=== PATIENT | female | born 1965 | race Two or more races ===

== ENCOUNTER 2022-05-12 17:26 | Inpatient (IN) | payer OTHER ==
[~2022-05-12] VITALS: Ht 154.9 cm; Wt 51.5 kg
[2022-05-12] MEDS ORDERED: GABA-1181 PO (19:23)
[2022-05-12] MEDS ORDERED: CLON-592 PO (19:23)
[2022-05-12] MEDS ORDERED: OLAN7.5T22 PO (19:23)
[2022-05-12 21:32] LABS: BASOPHILS % (AUTO) 0.4 % (0.0-2.0); EOSINOPHILS % (AUTO) 0.4 % (1.0-6.0); HEMATOCRIT 39.5 % (36-46); HEMOGLOBIN 13.2 g/dL (12.0-16.0); LYMPHOCYTES # (AUTO) 2.2 K/uL (1.0-4.8); LYMPHOCYTES % (AUTO) 21.4 % (22.0-44.0); MEAN CORPUSCULAR HEMOGLOBIN 31.8 pg (26.0-34.0); MEAN CORPUSCULAR HGB CONC 33.5 G/dL (31.0-37.0); MEAN CORPUSCULAR VOLUME 95 fL (80-100); MONOCYTES # (AUTO) 0.8 K/uL (0.1-1.0); NEUTROPHILS # (AUTO) 7.2 K/uL (1.8-7.7); NEUTROPHILS % (AUTO) 69.8 % (40.0-70.0); PLATELET COUNT (AUTO) 277 K/uL (150-450); RED BLOOD CELL COUNT(AUTO) 4.16 MIL/uL (4.00-5.20); RED CELL DISTRIBUTION WIDTH 12.3 % (11.5-14.5)
[2022-05-12 21:41] LABS: ANION GAP 6 mmol/L (8-16); CALCIUM, TOTAL 9.8 mg/dL (8.8-10.5); CARBON DIOXIDE 30 mmol/L (22-29); CHLORIDE 106 mmol/L (98-107); CREATININE 0.61 mg/dL (0.60-1.30); GLOMERULAR FILTR. RATE CALC > 60 mL/min (>60); GLUCOSE,RANDOM 108 mg/dL (70-110); POTASSIUM 3.8 mmol/L (3.5-5.1); SODIUM SERUM 142 mmol/L (136-145); UREA NITROGEN, BLOOD 13 mg/dL (7-18)
[2022-05-12 21:46] LABS: ALANINE AMINOTRANSFERASE 36 U/L (12-78); ALBUMIN 3.8 g/dL (3.4-5.0); ALKALINE PHOSPHATASE 89 U/L (46-116); ASPARTATE AMINOTRANSFERASE 22 U/L (15-37); BILIRUBIN,TOTAL 0.5 mg/dL (0.1-1.0); TOTAL PROTEIN, SERUM 7.7 g/dL (6.4-8.2)
[2022-05-12] MEDS ORDERED: LORazepam 2 MG TABLET PO PRN ×2 (22:00→22:30)
[2022-05-12] MEDS ORDERED: ZOLPIDEM TARTRATE 10 MG TABLET PO PRN ×2 (22:00→22:30)
[2022-05-12] MEDS ORDERED: OLANZapine 5 MG RAPDIS TABLET PO PRN ×2 (22:00→22:30)
[2022-05-13 00:33] LABS: COVID AG,FIA SOURCE NASOPHARYNGEAL
[2022-05-13 02:53] VITALS: BP 120/82
[2022-05-13 09:02] VITALS: BP 109/71
[2022-05-13 16:00] VITALS: BP 99/66
[2022-05-13 16:27] VITALS: BP 99/66
[2022-05-13] MEDS ORDERED: TEMAZEPAM 15 MG CAPSULE PO PRN (21:45)
[2022-05-13] MEDS ORDERED: ChlorproMAZINE HCL 50 MG TABLET PO PRN (21:45)
[2022-05-13] MEDS: OLANZapine 7.5 MG TABLET PO SCH (22:15)
[2022-05-13] MEDS ORDERED: LORazepam 2 MG TABLET PO PRN (22:30)
[2022-05-14 02:30] VITALS: BP 141/65
[2022-05-14 08:00] VITALS: BP 149/96
[2022-05-14] MEDS: OLANZapine 5 MG TABLET PO SCH ×2 (09:00→10:06)
[2022-05-14] MEDS: GABAPENTIN 300 MG CAPSULE PO SCH ×5 (09:00→17:27)
[2022-05-14] MEDS ORDERED: LORazepam 2 MG TABLET PO PRN (10:30)
[2022-05-14 12:48] LABS: BILIRUBIN,URINE NEGATIVE (NEGATIVE); GLUCOSE, URINE (UA) NEGATIVE (NEGATIVE); KETONES,URINE NEGATIVE (NEGATIVE); NITRATE,URINE NEGATIVE (NEGATIVE); OCCULT BLOOD,URINE SMALL (NEGATIVE); PROTEIN,URINE NEGATIVE (NEGATIVE); SPECIFIC GRAVITIY, URINE 1.005 (1.003-1.030); UROBILINOGEN,URINE <=1.0 mg/dL (<=1.0)
[2022-05-14 12:54] LABS: APPEARANCE,URINE HAZY (CLEAR); LEUKOCYTE ESTERASE ,URINE SMALL (NEGATIVE)
[2022-05-14 12:55] LABS: BACTERIA,URINE Few /HPF (None Seen)
[2022-05-14 16:42] VITALS: BP 169/99
[2022-05-14] MEDS: NITROFURANTOIN MONOHYD/M-CRYST 100 MG CAPSULE [MACROBID] PO SCH (17:19)
[2022-05-14] MEDS: OLANZapine 7.5 MG TABLET PO SCH (20:28)
[2022-05-15 08:32] VITALS: BP 157/91
[2022-05-15] MEDS: OLANZapine 5 MG TABLET PO SCH (08:49)
[2022-05-15] MEDS: GABAPENTIN 300 MG CAPSULE PO SCH ×4 (08:49→21:10)
[2022-05-15] MEDS: NITROFURANTOIN MONOHYD/M-CRYST 100 MG CAPSULE [MACROBID] PO SCH ×2 (08:49→16:33)
[2022-05-15 16:30] VITALS: BP 136/90
[2022-05-15 19:00] VITALS: BP 152/86
[2022-05-15] MEDS: MELATONIN 5 MG TABLET PO SCH (21:10)
[2022-05-15] MEDS: OLANZapine 10 MG TABLET PO SCH (21:11)
[2022-05-16 08:11] VITALS: BP 142/84
[2022-05-16] MEDS: NITROFURANTOIN MONOHYD/M-CRYST 100 MG CAPSULE [MACROBID] PO SCH ×2 (09:26→17:27)
[2022-05-16] MEDS: GABAPENTIN 300 MG CAPSULE PO SCH ×2 (09:26→20:46)
[2022-05-16 12:01] VITALS: BP 138/77
[2022-05-16 16:28] VITALS: BP 132/95
[2022-05-16 20:43] VITALS: BP 160/99
[2022-05-16] MEDS: OLANZapine 10 MG TABLET PO SCH (20:46)
[2022-05-16] MEDS: MELATONIN 5 MG TABLET PO SCH (20:46)
[2022-05-17] MEDS: NITROFURANTOIN MONOHYD/M-CRYST 100 MG CAPSULE [MACROBID] PO SCH ×2 (09:00→19:01)
[2022-05-17] MEDS: GABAPENTIN 300 MG CAPSULE PO SCH ×2 (09:00→19:01)
[2022-05-17 16:33] VITALS: BP 127/77
[2022-05-17] MEDS ORDERED: ACETAMINOPHEN 325 MG TABLET PO PRN (16:45)
[2022-05-17] MEDS ORDERED: LORazepam 2 MG TABLET PO PRN (16:45)
[2022-05-17] MEDS ORDERED: ZOLPIDEM TARTRATE 10 MG TABLET PO PRN (16:45)
[2022-05-17] MEDS ORDERED: HydrOXYzine PAMOATE 50 MG CAPSULE PO PRN (16:45)
[2022-05-17] MEDS ORDERED: PROMETHAZINE HCL 25 MG TABLET PO PRN (16:45)
[2022-05-17] MEDS ORDERED: MAGNESIUM HYDROXIDE SUSPENSION 30 ML UDCUP PO PRN (16:45)
[2022-05-17] MEDS ORDERED: TUBERCULIN, PURIFIED PROTEIN DERIVATIVE 5 TU/0.1 ML SYRINGE ID ONE (16:45)
[2022-05-17] MEDS ORDERED: LURASIDONE HCL 20 MG TABLET PO PRN (16:45)
[2022-05-17] MEDS ORDERED: LOPERAMIDE HCL 2 MG CAPSULE PO PRN (16:45)
[2022-05-17] MEDS ORDERED: GuaiFENesin/D-METHORPHAN [SUGAR-FREE] 200-20MG/10 ML SYRUP UDCUP PO PRN (16:45)
[2022-05-17] MEDS ORDERED: MAG HYDROX/AL HYDROX/SIMETH ES 30 ML SUSPENSION UDCUP PO PRN (16:45)
[2022-05-17] MEDS: THIAMINE 100 MG TABLET PO SCH (19:01)
[2022-05-17] MEDS: MIRTAZAPINE 15 MG TABLET PO SCH (21:03)
[2022-05-17] MEDS: MELATONIN 5 MG TABLET PO SCH (21:03)
[2022-05-18] MEDS: LURASIDONE HCL 40 MG TABLET PO SCH (06:57)
[2022-05-18 07:12] LABS: HEMOGLOBIN A1C 5.8 % (3.8-5.6)
[2022-05-18 07:16] LABS: CHOL/HDL RATIO 2.5 (3.9-5.7); FREE T4 (FREE THYROXINE) 0.96 ng/dL (0.76-1.46); THYROID STIMULATING HORMONE 2.31 uIU/mL (0.36-3.74)
[2022-05-18 08:00] VITALS: BP 122/79
[2022-05-18] MEDS: NITROFURANTOIN MONOHYD/M-CRYST 100 MG CAPSULE [MACROBID] PO SCH ×2 (08:38→18:35)
[2022-05-18] MEDS: GABAPENTIN 300 MG CAPSULE PO SCH ×2 (08:38→14:29)
[2022-05-18] MEDS: FOLIC ACID 1 MG TABLET PO SCH (08:44)
[2022-05-18] MEDS: OMEGA-3/DHA/EPA/FISH OIL 1,000 MG CAPSULE PO SCH (08:44)
[2022-05-18] MEDS: MULTIVITAMINS WITH MINERALS, THERAPEUTIC TABLET PO SCH (08:45)
[2022-05-18] MEDS: THIAMINE 100 MG TABLET PO SCH ×2 (08:45→18:35)
[2022-05-18] MEDS ORDERED: DULoxetine HCL 20 MG CAPSULE PO SCH (09:00)
[2022-05-18 16:05] VITALS: BP 104/67
[2022-05-18] MEDS: GABAPENTIN 100 MG CAPSULE PO SCH (18:36)
[2022-05-18] MEDS: MELATONIN 5 MG TABLET PO SCH (21:10)
[2022-05-18] MEDS: MIRTAZAPINE 15 MG TABLET PO SCH (21:10)
[2022-05-19] MEDS: LURASIDONE HCL 40 MG TABLET PO SCH (06:43)
[2022-05-19 07:15] LABS: COVID AG,FIA SOURCE NASAL SWAB
[2022-05-19 08:31] VITALS: BP 131/81
[2022-05-19] MEDS: OMEGA-3/DHA/EPA/FISH OIL 1,000 MG CAPSULE PO SCH (08:40)
[2022-05-19] MEDS: GABAPENTIN 100 MG CAPSULE PO SCH ×3 (08:40→16:10)
[2022-05-19] MEDS: MULTIVITAMINS WITH MINERALS, THERAPEUTIC TABLET PO SCH (08:40)
[2022-05-19] MEDS: THIAMINE 100 MG TABLET PO SCH ×2 (08:40→16:10)
[2022-05-19] MEDS: FOLIC ACID 1 MG TABLET PO SCH (08:40)
[2022-05-19] MEDS: NITROFURANTOIN MONOHYD/M-CRYST 100 MG CAPSULE [MACROBID] PO SCH (08:40)
[2022-05-19 08:53] VITALS: BP 130/76
[2022-05-19] MEDS ORDERED: DULoxetine HCL 30 MG CAPSULE PO SCH (09:00)
[2022-05-19 16:00] VITALS: BP 142/78
[2022-05-19 16:15] VITALS: BP 142/78
[2022-05-19] MEDS ORDERED: OMEG-135 PO (17:10)
[2022-05-19] MEDS ORDERED: DULO-114 PO (17:10)
[2022-05-19] MEDS ORDERED: MELA5TAB40 PO (17:10)
[2022-05-19] MEDS ORDERED: GABA-1216 PO (17:10)
[2022-05-19] MEDS ORDERED: LURA40TA2 PO (17:10)
[2022-05-19] MEDS ORDERED: MIRT-89 PO (17:10)
== END 2022-05-19 19:00 | disposition home or self-care (01) | DRG 885 ==
LOC: EMS 17:29 → 3EI 05-13 01:04
PROVIDERS: ADMIT Psychiatry & Neurology Psychiatry; ATTEND Psychiatry & Neurology Psychiatry
DX: F33.9 Major depressive disorder, recurrent, unspecified (principal); R45.851 Suicidal ideations; F25.0 Schizoaffective disorder, bipolar type; F41.9 Anxiety disorder, unspecified; I10 Essential (primary) hypertension; Z20.822 Contact with and (suspected) exposure to COVID-19; Z55.9 Problems related to education and literacy, unspecified; Z59.9 Problem related to housing and economic circumstances, unspecified; Z63.9 Problem related to primary support group, unspecified; Z65.3 Problems related to other legal circumstances; Z79.899 Other long term (current) drug therapy; Z91.14 Patient's other noncompliance with medication regimen; Z91.19 Patient's noncompliance with other medical treatment and regimen; Z91.52 Personal history of nonsuicidal self-harm; Z63.8 Other specified problems related to primary support group; Z63.0 Problems in relationship with spouse or partner; Z56.0 Unemployment, unspecified
CPT/HCPCS: 80053; 80061; 81001; 83036; 84439; 84443; 85025; 86592; 99285; G0480; Q9967

== ENCOUNTER 2022-05-26 11:33 | Inpatient (IN) | payer OTHER ==
[~2022-05-26] VITALS: Ht 154.9 cm; Wt 54.9 kg
[~2022-05-26 11:33] MED LIST: DULO-114 PO; GABA-1216 PO; LURA40TA2 PO; MELA5TAB40 PO; MIRT-89 PO; OMEG-135 PO
[2022-05-26 12:13] LABS: BASOPHILS % (AUTO) 0.8 % (0.0-2.0); EOSINOPHILS % (AUTO) 0.5 % (1.0-6.0); HEMOGLOBIN 12.9 g/dL (12.0-16.0); LYMPHOCYTES # (AUTO) 1.5 K/uL (1.0-4.8); MEAN CORPUSCULAR HEMOGLOBIN 31.6 pg (26.0-34.0); MEAN CORPUSCULAR HGB CONC 33.2 G/dL (31.0-37.0); MEAN CORPUSCULAR VOLUME 95 fL (80-100); MONOCYTES # (AUTO) 0.6 K/uL (0.1-1.0); MONOCYTES % (AUTO) 6.3 % (2.0-9.0); NEUTROPHILS # (AUTO) 6.8 K/uL (1.8-7.7); NEUTROPHILS % (AUTO) 75.4 % (40.0-70.0); PLATELET COUNT (AUTO) 282 K/uL (150-450); RED CELL DISTRIBUTION WIDTH 12.6 % (11.5-14.5)
[2022-05-26 12:23] LABS: ANION GAP 6 mmol/L (8-16); CALCIUM, TOTAL 9.1 mg/dL (8.8-10.5); CARBON DIOXIDE 28 mmol/L (22-29); CHLORIDE 105 mmol/L (98-107); CREATININE 0.71 mg/dL (0.60-1.30); GLUCOSE,RANDOM 118 mg/dL (70-110); SODIUM SERUM 139 mmol/L (136-145); UREA NITROGEN, BLOOD 17 mg/dL (7-18)
[2022-05-26 12:25] LABS: GLOMERULAR FILTR. RATE CALC > 60 mL/min (>60)
[2022-05-26 12:29] LABS: ALANINE AMINOTRANSFERASE 35 U/L (12-78); ALBUMIN 3.6 g/dL (3.4-5.0); ALKALINE PHOSPHATASE 85 U/L (46-116); ASPARTATE AMINOTRANSFERASE 22 U/L (15-37); BILIRUBIN,TOTAL 0.5 mg/dL (0.1-1.0); TOTAL PROTEIN, SERUM 7.4 g/dL (6.4-8.2)
[2022-05-26] MEDS ORDERED: LORazepam 2 MG TABLET PO ONE (14:15)
[2022-05-26] MEDS ORDERED: OLANZapine 5 MG TABLET PO ONE (14:30)
[2022-05-26 14:53] LABS: COVID AG,FIA SOURCE NASOPHARYNGEAL
[2022-05-26] MEDS ORDERED: LOPERAMIDE HCL 2 MG CAPSULE PO PRN (15:45)
[2022-05-26] MEDS ORDERED: PROMETHAZINE HCL 25 MG TABLET PO PRN (15:45)
[2022-05-26] MEDS ORDERED: ZOLPIDEM TARTRATE 10 MG TABLET PO PRN (15:45)
[2022-05-26] MEDS ORDERED: MAG HYDROX/AL HYDROX/SIMETH ES 30 ML SUSPENSION UDCUP PO PRN (15:45)
[2022-05-26] MEDS ORDERED: HydrOXYzine PAMOATE 50 MG CAPSULE PO PRN (15:45)
[2022-05-26] MEDS ORDERED: MAGNESIUM HYDROXIDE SUSPENSION 30 ML UDCUP PO PRN (15:45)
[2022-05-26] MEDS ORDERED: LORazepam 2 MG TABLET PO PRN ×2 (15:45)
[2022-05-26] MEDS ORDERED: OLANZapine 5 MG RAPDIS TABLET PO PRN (15:45)
[2022-05-26] MEDS ORDERED: GuaiFENesin/D-METHORPHAN [SUGAR-FREE] 200-20MG/10 ML SYRUP UDCUP PO PRN (15:45)
[2022-05-26] MEDS: GABAPENTIN 100 MG CAPSULE PO SCH ×2 (16:38→20:32)
[2022-05-26] MEDS: THIAMINE 100 MG TABLET PO SCH (17:28)
[2022-05-26] MEDS: MIRTAZAPINE 15 MG TABLET PO SCH (20:32)
[2022-05-26] MEDS ORDERED: OLANZapine 10 MG RAPDIS TABLET PO SCH (21:00)
[2022-05-26 21:03] VITALS: BP 102/69
[2022-05-26] MEDS ORDERED: CloNIDine HCL 0.1 MG TABLET PO PRN (23:45)
[2022-05-27] MEDS: THIAMINE 100 MG TABLET PO SCH ×2 (08:16→17:16)
[2022-05-27] MEDS: GABAPENTIN 100 MG CAPSULE PO SCH ×2 (08:16→12:10)
[2022-05-27] MEDS: DULoxetine HCL 20 MG CAPSULE PO SCH (08:16)
[2022-05-27] MEDS: MULTIVITAMINS WITH MINERALS, THERAPEUTIC TABLET PO SCH (08:16)
[2022-05-27] MEDS: FOLIC ACID 1 MG TABLET PO SCH (08:16)
[2022-05-27 08:45] VITALS: BP 118/70
[2022-05-27] MEDS ORDERED: PREGABALIN 50 MG CAPSULE PO PRN (15:45)
[2022-05-27] MEDS: OLANZapine 5 MG RAPDIS TABLET PO PRN (17:32)
[2022-05-27 20:10] VITALS: BP 137/93
[2022-05-27] MEDS: ZOLPIDEM TARTRATE 10 MG TABLET PO PRN (21:16)
[2022-05-27] MEDS: MIRTAZAPINE 15 MG TABLET PO SCH (21:16)
[2022-05-28 06:57] LABS: BASOPHILS % (AUTO) 0.9 % (0.0-2.0); EOSINOPHILS % (AUTO) 3.5 % (1.0-6.0); LYMPHOCYTES # (AUTO) 2.5 K/uL (1.0-4.8); LYMPHOCYTES % (AUTO) 33.3 % (22.0-44.0); MEAN CORPUSCULAR HGB CONC 33.5 G/dL (31.0-37.0); MEAN CORPUSCULAR VOLUME 96 fL (80-100); MONOCYTES # (AUTO) 0.6 K/uL (0.1-1.0); MONOCYTES % (AUTO) 8.4 % (2.0-9.0); NEUTROPHILS # (AUTO) 4.1 K/uL (1.8-7.7); NEUTROPHILS % (AUTO) 53.9 % (40.0-70.0); PLATELET COUNT (AUTO) 271 K/uL (150-450); RED BLOOD CELL COUNT(AUTO) 4.07 MIL/uL (4.00-5.20); RED CELL DISTRIBUTION WIDTH 12.2 % (11.5-14.5)
[2022-05-28] MEDS: DULoxetine HCL 20 MG CAPSULE PO SCH (08:14)
[2022-05-28] MEDS: THIAMINE 100 MG TABLET PO SCH ×2 (08:14→16:25)
[2022-05-28] MEDS: MULTIVITAMINS WITH MINERALS, THERAPEUTIC TABLET PO SCH (08:14)
[2022-05-28] MEDS: FOLIC ACID 1 MG TABLET PO SCH (08:14)
[2022-05-28 08:30] VITALS: BP 121/75
[2022-05-28] MEDS: OLANZapine 5 MG RAPDIS TABLET PO PRN (10:20)
[2022-05-28] MEDS ORDERED: CloZAPine 25 MG TABLET PO SCH (11:00)
[2022-05-28] MEDS ORDERED: PROPRANOLOL HCL 10 MG TABLET PO ONE (14:30)
[2022-05-28] MEDS ORDERED: LORazepam 2 MG TABLET PO ONE (14:30)
[2022-05-28] MEDS ORDERED: LORazepam 2 MG TABLET PO PRN (14:30)
[2022-05-28 16:07] VITALS: BP 118/78
[2022-05-28] MEDS: PROPRANOLOL HCL 10 MG TABLET PO SCH ×2 (16:25→21:40)
[2022-05-28] MEDS: LORazepam 1 MG TABLET PO SCH ×2 (16:25→21:39)
[2022-05-28 20:00] VITALS: BP 119/75
[2022-05-28] MEDS: MIRTAZAPINE 15 MG TABLET PO SCH (21:39)
[2022-05-29 08:06] VITALS: BP 117/75
[2022-05-29] MEDS ORDERED: CloZAPine 25 MG TABLET PO SCH ×2 (09:00→21:00)
[2022-05-29 09:23] LABS: APPEARANCE,URINE CLEAR (CLEAR); BILIRUBIN,URINE NEGATIVE (NEGATIVE); GLUCOSE, URINE (UA) NEGATIVE (NEGATIVE); KETONES,URINE NEGATIVE (NEGATIVE); LEUKOCYTE ESTERASE ,URINE NEGATIVE (NEGATIVE); NITRATE,URINE NEGATIVE (NEGATIVE); OCCULT BLOOD,URINE NEGATIVE (NEGATIVE); PH,URINE 6.5 (5.0-8.0); PROTEIN,URINE NEGATIVE (NEGATIVE); SPECIFIC GRAVITIY, URINE 1.015 (1.003-1.030); UROBILINOGEN,URINE <=1.0 mg/dL (<=1.0)
[2022-05-29 09:30] LABS: AMPHET/METH SCREEN,URINE NEGATIVE (NEGATIVE); BARBITURATE SCREEN, URINE NEGATIVE (NEGATIVE); BENZODIAZEPINES SCREEN,URINE NEGATIVE (NEGATIVE); CANNABINOID SCREEN,URINE NEGATIVE (NEGATIVE); COCAINE SCREEN,URINE NEGATIVE (NEGATIVE); METHADONE SCREEN, URINE NEGATIVE (NEGATIVE); OPIATE SCREEN,URINE NEGATIVE (NEGATIVE)
[2022-05-29 09:34] LABS: PHENCYCLIDINE SCREEN,URINE NEGATIVE (NEGATIVE)
[2022-05-29] MEDS: THIAMINE 100 MG TABLET PO SCH ×2 (09:50→16:33)
[2022-05-29] MEDS: LORazepam 1 MG TABLET PO SCH ×4 (09:50→20:59)
[2022-05-29] MEDS: PROPRANOLOL HCL 10 MG TABLET PO SCH ×4 (09:50→20:59)
[2022-05-29] MEDS: FOLIC ACID 1 MG TABLET PO SCH (09:50)
[2022-05-29] MEDS: MULTIVITAMINS WITH MINERALS, THERAPEUTIC TABLET PO SCH (09:50)
[2022-05-29 20:00] VITALS: BP 105/69
[2022-05-29] MEDS: MIRTAZAPINE 15 MG TABLET PO SCH (20:59)
[2022-05-30] MEDS: MULTIVITAMINS WITH MINERALS, THERAPEUTIC TABLET PO SCH (08:53)
[2022-05-30] MEDS: THIAMINE 100 MG TABLET PO SCH ×2 (08:53→18:44)
[2022-05-30] MEDS: FOLIC ACID 1 MG TABLET PO SCH (08:53)
[2022-05-30] MEDS: LORazepam 1 MG TABLET PO SCH ×4 (08:53→20:36)
[2022-05-30] MEDS: PROPRANOLOL HCL 10 MG TABLET PO SCH ×4 (08:53→20:37)
[2022-05-30] MEDS ORDERED: CloZAPine 25 MG TABLET PO SCH ×2 (09:00→21:00)
[2022-05-30 09:09] VITALS: BP 119/72
[2022-05-30 15:02] VITALS: BP 112/70
[2022-05-30 18:45] VITALS: BP 127/87
[2022-05-30] MEDS: MIRTAZAPINE 15 MG TABLET PO SCH (20:36)
[2022-05-30 20:44] VITALS: BP 113/60
[2022-05-30] MEDS: ZOLPIDEM TARTRATE 10 MG TABLET PO PRN (21:56)
[2022-05-31] MEDS: LORazepam 1 MG TABLET PO SCH ×3 (08:22→16:43)
[2022-05-31] MEDS: PROPRANOLOL HCL 10 MG TABLET PO SCH ×4 (08:22→20:29)
[2022-05-31] MEDS: MULTIVITAMINS WITH MINERALS, THERAPEUTIC TABLET PO SCH (08:22)
[2022-05-31] MEDS: FOLIC ACID 1 MG TABLET PO SCH (08:22)
[2022-05-31] MEDS: THIAMINE 100 MG TABLET PO SCH ×2 (08:22→16:44)
[2022-05-31 08:33] VITALS: BP 110/75
[2022-05-31] MEDS ORDERED: CloZAPine 25 MG TABLET PO SCH (09:00)
[2022-05-31 16:30] VITALS: BP 117/72
[2022-05-31 20:16] VITALS: BP 122/76
[2022-05-31] MEDS: MIRTAZAPINE 30 MG TABLET PO SCH (20:29)
[2022-05-31] MEDS: ZOLPIDEM TARTRATE 10 MG TABLET PO PRN (20:57)
[2022-06-01] MEDS: PROPRANOLOL HCL 10 MG TABLET PO SCH ×4 (08:12→20:27)
[2022-06-01] MEDS: FOLIC ACID 1 MG TABLET PO SCH (08:12)
[2022-06-01] MEDS: MULTIVITAMINS WITH MINERALS, THERAPEUTIC TABLET PO SCH (08:12)
[2022-06-01] MEDS: LORazepam 0.5 MG TABLET PO SCH ×3 (08:12→16:31)
[2022-06-01] MEDS: THIAMINE 100 MG TABLET PO SCH ×2 (08:12→16:31)
[2022-06-01 08:21] VITALS: BP 114/74
[2022-06-01 12:25] VITALS: BP 126/75
[2022-06-01] MEDS ORDERED: MIRT30 PO (14:29)
[2022-06-01] MEDS ORDERED: PROP10TA72 PO (14:29)
[2022-06-01 16:21] LABS: GLUCOMETER DEV NAME(LOC) POC.BV
[2022-06-01 16:31] VITALS: BP 140/88
[2022-06-01 20:17] VITALS: BP 123/74
[2022-06-01] MEDS: MIRTAZAPINE 30 MG TABLET PO SCH (20:27)
[2022-06-01] MEDS: ZOLPIDEM TARTRATE 10 MG TABLET PO PRN (20:59)
[2022-06-02 07:15] LABS: BASOPHILS % (AUTO) 0.7 % (0.0-2.0); EOSINOPHILS % (AUTO) 2.6 % (1.0-6.0); HEMATOCRIT 37.4 % (36-46); HEMOGLOBIN 12.3 g/dL (12.0-16.0); LYMPHOCYTES # (AUTO) 2.7 K/uL (1.0-4.8); LYMPHOCYTES % (AUTO) 27.6 % (22.0-44.0); MEAN CORPUSCULAR HEMOGLOBIN 31.7 pg (26.0-34.0); MEAN CORPUSCULAR HGB CONC 32.9 G/dL (31.0-37.0); MEAN CORPUSCULAR VOLUME 96 fL (80-100); MONOCYTES # (AUTO) 0.8 K/uL (0.1-1.0); MONOCYTES % (AUTO) 8.6 % (2.0-9.0); NEUTROPHILS % (AUTO) 60.5 % (40.0-70.0); PLATELET COUNT (AUTO) 278 K/uL (150-450); RED BLOOD CELL COUNT(AUTO) 3.88 MIL/uL (4.00-5.20); RED CELL DISTRIBUTION WIDTH 12.4 % (11.5-14.5)
[2022-06-02] MEDS: PROPRANOLOL HCL 10 MG TABLET PO SCH ×4 (08:13→20:31)
[2022-06-02] MEDS: FOLIC ACID 1 MG TABLET PO SCH (08:13)
[2022-06-02] MEDS: THIAMINE 100 MG TABLET PO SCH ×2 (08:13→16:32)
[2022-06-02] MEDS: MULTIVITAMINS WITH MINERALS, THERAPEUTIC TABLET PO SCH (08:13)
[2022-06-02 08:25] VITALS: BP 153/91
[2022-06-02] MEDS ORDERED: CloZAPine 25 MG TABLET PO SCH ×2 (09:00)
[2022-06-02 16:31] VITALS: BP 112/62
[2022-06-02 20:17] VITALS: BP 120/75
[2022-06-02] MEDS: MIRTAZAPINE 30 MG TABLET PO SCH (20:31)
[2022-06-02] MEDS: ZOLPIDEM TARTRATE 10 MG TABLET PO PRN (20:59)
[2022-06-02] MEDS ORDERED: CloZAPine 100 MG TABLET PO SCH (21:00)
[2022-06-03] MEDS: FOLIC ACID 1 MG TABLET PO SCH (08:01)
[2022-06-03] MEDS: THIAMINE 100 MG TABLET PO SCH ×3 (08:01→16:00)
[2022-06-03] MEDS: MULTIVITAMINS WITH MINERALS, THERAPEUTIC TABLET PO SCH (08:01)
[2022-06-03] MEDS: PROPRANOLOL HCL 10 MG TABLET PO SCH ×5 (08:01→21:15)
[2022-06-03 08:37] VITALS: BP 124/70
[2022-06-03] MEDS ORDERED: CloZAPine 25 MG TABLET PO SCH ×3 (09:00→21:00)
[2022-06-03] MEDS ORDERED: GABAPENTIN 300 MG CAPSULE PO PRN (14:45)
[2022-06-03] MEDS: GABAPENTIN 300 MG CAPSULE PO SCH ×2 (15:58→16:00)
[2022-06-03] MEDS ORDERED: CloZAPine 100 MG TABLET PO SCH (21:00)
[2022-06-03 21:13] VITALS: BP 107/74
[2022-06-03] MEDS: MIRTAZAPINE 30 MG TABLET PO SCH (21:15)
[2022-06-04 08:07] VITALS: BP 120/63
[2022-06-04] MEDS ORDERED: CloZAPine 25 MG TABLET PO SCH ×3 (09:00→21:00)
[2022-06-04] MEDS: MULTIVITAMINS WITH MINERALS, THERAPEUTIC TABLET PO SCH (10:15)
[2022-06-04] MEDS ORDERED: PREGABALIN 50 MG CAPSULE PO PRN (10:15)
[2022-06-04] MEDS: PROPRANOLOL HCL 10 MG TABLET PO SCH ×4 (10:15→21:22)
[2022-06-04] MEDS: THIAMINE 100 MG TABLET PO SCH ×2 (10:16→17:06)
[2022-06-04] MEDS: FOLIC ACID 1 MG TABLET PO SCH (10:16)
[2022-06-04 12:28] VITALS: BP 122/66
[2022-06-04] MEDS: PREGABALIN 50 MG CAPSULE PO SCH ×2 (12:30→17:06)
[2022-06-04 20:00] VITALS: BP 100/70
[2022-06-04] MEDS ORDERED: CloZAPine 100 MG TABLET PO SCH (21:00)
[2022-06-04] MEDS: MIRTAZAPINE 30 MG TABLET PO SCH (21:23)
[2022-06-05 08:22] VITALS: BP 139/65
[2022-06-05] MEDS: PROPRANOLOL HCL 10 MG TABLET PO SCH ×4 (08:29→20:28)
[2022-06-05] MEDS: PREGABALIN 50 MG CAPSULE PO SCH ×3 (08:29→16:30)
[2022-06-05] MEDS: CloZAPine 25 MG TABLET PO SCH ×2 (08:29→20:28)
[2022-06-05] MEDS: FOLIC ACID 1 MG TABLET PO SCH (08:29)
[2022-06-05] MEDS: MULTIVITAMINS WITH MINERALS, THERAPEUTIC TABLET PO SCH (08:29)
[2022-06-05] MEDS ORDERED: CloZAPine 100 MG TABLET PO SCH (09:00)
[2022-06-05 12:41] VITALS: BP 115/62
[2022-06-05 16:38] VITALS: BP 111/77
[2022-06-05 20:12] VITALS: BP 118/73
[2022-06-05] MEDS: MIRTAZAPINE 30 MG TABLET PO SCH (20:28)
[2022-06-05] MEDS: ZOLPIDEM TARTRATE 10 MG TABLET PO PRN (21:15)
[2022-06-06 08:05] VITALS: BP 100/65
[2022-06-06] MEDS: PROPRANOLOL HCL 10 MG TABLET PO SCH ×4 (08:24→20:31)
[2022-06-06] MEDS: MULTIVITAMINS WITH MINERALS, THERAPEUTIC TABLET PO SCH (08:24)
[2022-06-06] MEDS: PREGABALIN 50 MG CAPSULE PO SCH ×3 (08:24→16:49)
[2022-06-06] MEDS: CloZAPine 25 MG TABLET PO SCH ×2 (08:25→20:30)
[2022-06-06 12:14] VITALS: BP 111/68
[2022-06-06] MEDS: ACETAMINOPHEN 325 MG TABLET PO PRN (12:27)
[2022-06-06 20:05] VITALS: BP 122/71
[2022-06-06] MEDS: ZOLPIDEM TARTRATE 10 MG TABLET PO PRN (20:29)
[2022-06-06] MEDS: MIRTAZAPINE 30 MG TABLET PO SCH (20:31)
[2022-06-07] MEDS: MULTIVITAMINS WITH MINERALS, THERAPEUTIC TABLET PO SCH (08:08)
[2022-06-07] MEDS: PREGABALIN 50 MG CAPSULE PO SCH ×2 (08:08→12:30)
[2022-06-07] MEDS: PROPRANOLOL HCL 10 MG TABLET PO SCH ×4 (08:09→20:30)
[2022-06-07 08:35] VITALS: BP 89/48
[2022-06-07] MEDS ORDERED: CloZAPine 25 MG TABLET PO SCH ×2 (09:00)
[2022-06-07 16:14] VITALS: BP 105/65
[2022-06-07] MEDS: ACETAMINOPHEN 325 MG TABLET PO PRN (16:14)
[2022-06-07] MEDS: PREGABALIN 75 MG CAPSULE PO SCH (17:15)
[2022-06-07 20:17] VITALS: BP 126/89
[2022-06-07] MEDS: MIRTAZAPINE 30 MG TABLET PO SCH (20:30)
[2022-06-07] MEDS: ZOLPIDEM TARTRATE 10 MG TABLET PO PRN (20:55)
[2022-06-07] MEDS ORDERED: CloZAPine 100 MG TABLET PO SCH ×2 (21:00)
[2022-06-07 21:15] VITALS: BP 78/42
[2022-06-07 23:15] VITALS: BP 78/42
[2022-06-07 23:30] VITALS: BP 118/60
[2022-06-08] VITALS (9 sets, daily range): BP systolic 110–218; BP diastolic 65–90
[2022-06-08] MEDS: MULTIVITAMINS WITH MINERALS, THERAPEUTIC TABLET PO SCH (08:00)
[2022-06-08] MEDS: PREGABALIN 75 MG CAPSULE PO SCH ×3 (08:01→17:46)
[2022-06-08] MEDS: ACETAMINOPHEN 325 MG TABLET PO PRN ×3 (08:04→20:43)
[2022-06-08 08:41] LABS: GLUCOMETER DEV NAME(LOC) POC.BV
[2022-06-08] MEDS ORDERED: CloZAPine 25 MG TABLET PO SCH ×2 (09:00)
[2022-06-08] MEDS: MIRTAZAPINE 30 MG TABLET PO SCH (20:50)
[2022-06-08] MEDS ORDERED: CloZAPine 100 MG TABLET PO SCH ×2 (21:00)
[2022-06-09 07:13] LABS: BASOPHILS % (AUTO) 0.6 % (0.0-2.0); EOSINOPHILS % (AUTO) 0.8 % (1.0-6.0); HEMATOCRIT 38.9 % (36-46); LYMPHOCYTES # (AUTO) 1.9 K/uL (1.0-4.8); LYMPHOCYTES % (AUTO) 23.1 % (22.0-44.0); MEAN CORPUSCULAR HGB CONC 33.5 G/dL (31.0-37.0); MEAN CORPUSCULAR VOLUME 96 fL (80-100); MONOCYTES # (AUTO) 0.5 K/uL (0.1-1.0); MONOCYTES % (AUTO) 5.8 % (2.0-9.0); NEUTROPHILS # (AUTO) 5.8 K/uL (1.8-7.7); NEUTROPHILS % (AUTO) 69.7 % (40.0-70.0); PLATELET COUNT (AUTO) 275 K/uL (150-450); RED BLOOD CELL COUNT(AUTO) 4.07 MIL/uL (4.00-5.20); RED CELL DISTRIBUTION WIDTH 12.8 % (11.5-14.5)
[2022-06-09 08:05] VITALS: BP 121/59
[2022-06-09] MEDS: MULTIVITAMINS WITH MINERALS, THERAPEUTIC TABLET PO SCH (08:12)
[2022-06-09] MEDS: PREGABALIN 75 MG CAPSULE PO SCH ×2 (08:12→12:45)
[2022-06-09] MEDS ORDERED: CloZAPine 25 MG TABLET PO SCH (09:00)
[2022-06-09] MEDS ORDERED: CloZAPine 100 MG TABLET PO SCH ×3 (09:00→21:00)
[2022-06-09 11:47] VITALS: BP 135/64
[2022-06-09] MEDS ORDERED: ZOLPIDEM TARTRATE 5 MG TABLET PO PRN (15:00)
[2022-06-09] MEDS: PREGABALIN 50 MG CAPSULE PO SCH (16:05)
[2022-06-09 20:33] VITALS: BP 130/78
[2022-06-09] MEDS ORDERED: MIRTAZAPINE 30 MG TABLET PO SCH (21:00)
[2022-06-10] MEDS: MULTIVITAMINS WITH MINERALS, THERAPEUTIC TABLET PO SCH (09:24)
[2022-06-10] MEDS: PREGABALIN 50 MG CAPSULE PO SCH ×3 (09:24→17:26)
[2022-06-10] MEDS: CloZAPine 100 MG TABLET PO SCH ×2 (09:25→20:31)
[2022-06-10 10:08] VITALS: BP 113/76
[2022-06-10 20:01] VITALS: BP 120/71
[2022-06-10] MEDS: MIRTAZAPINE 15 MG TABLET PO SCH (20:31)
[2022-06-11 09:19] VITALS: BP 106/67
[2022-06-11] MEDS: CloZAPine 100 MG TABLET PO SCH ×2 (09:50→21:31)
[2022-06-11] MEDS: MULTIVITAMINS WITH MINERALS, THERAPEUTIC TABLET PO SCH (09:50)
[2022-06-11] MEDS: PREGABALIN 50 MG CAPSULE PO SCH ×2 (09:51→13:27)
[2022-06-11] MEDS ORDERED: MELA5TAB40 PO (14:40)
[2022-06-11] MEDS ORDERED: PREG50 PO (14:40)
[2022-06-11] MEDS ORDERED: MIRT-89 PO (14:40)
[2022-06-11] MEDS ORDERED: CLOZ100T11 PO (14:40)
[2022-06-11] MEDS: PREGABALIN 25 MG CAPSULE PO SCH (17:45)
[2022-06-11 20:00] VITALS: BP 112/62
[2022-06-11] MEDS: MIRTAZAPINE 15 MG TABLET PO SCH (20:08)
[2022-06-11] MEDS: ACETAMINOPHEN 325 MG TABLET PO PRN (23:30)
[2022-06-12] MEDS: PREGABALIN 25 MG CAPSULE PO SCH ×3 (08:32→16:35)
[2022-06-12] MEDS: MULTIVITAMINS WITH MINERALS, THERAPEUTIC TABLET PO SCH (08:32)
[2022-06-12 09:00] VITALS: BP 136/83
[2022-06-12] MEDS ORDERED: CloZAPine 25 MG TABLET PO SCH ×2 (09:00)
[2022-06-12] MEDS: ACETAMINOPHEN 325 MG TABLET PO PRN (19:20)
[2022-06-12 20:00] VITALS: BP 104/72
[2022-06-12] MEDS: MIRTAZAPINE 15 MG TABLET PO SCH (20:13)
[2022-06-12] MEDS ORDERED: CloZAPine 100 MG TABLET PO SCH (21:00)
[2022-06-13] MEDS ORDERED: CloZAPine 25 MG TABLET PO SCH (09:00)
[2022-06-13 09:15] VITALS: BP 109/79
[2022-06-13] MEDS: PREGABALIN 25 MG CAPSULE PO SCH ×3 (09:18→17:24)
[2022-06-13] MEDS: MULTIVITAMINS WITH MINERALS, THERAPEUTIC TABLET PO SCH (09:18)
[2022-06-13] MEDS: MIRTAZAPINE 15 MG TABLET PO SCH (20:24)
[2022-06-13] MEDS ORDERED: CloZAPine 100 MG TABLET PO SCH (21:00)
[2022-06-13 21:20] VITALS: BP 126/75
[2022-06-14 08:26] VITALS: BP 113/71
[2022-06-14] MEDS ORDERED: CloZAPine 100 MG TABLET PO SCH ×2 (09:00→21:00)
[2022-06-14] MEDS: MULTIVITAMINS WITH MINERALS, THERAPEUTIC TABLET PO SCH (09:29)
[2022-06-14] MEDS: PREGABALIN 25 MG CAPSULE PO SCH (09:30)
== END 2022-06-14 12:00 | disposition home or self-care (01) | DRG 885 ==
LOC: EMS 11:36 → B2X 16:53
PROVIDERS: ADMIT Psychiatry & Neurology Psychiatry; ATTEND Psychiatry & Neurology Psychiatry
DX: F33.3 Major depressive disorder, recurrent, severe with psychotic symptoms (principal); I10 Essential (primary) hypertension; I95.1 Orthostatic hypotension; R73.9 Hyperglycemia, unspecified; Z20.822 Contact with and (suspected) exposure to COVID-19; Z55.9 Problems related to education and literacy, unspecified; Z59.9 Problem related to housing and economic circumstances, unspecified; Z63.9 Problem related to primary support group, unspecified; Z65.3 Problems related to other legal circumstances; Z79.899 Other long term (current) drug therapy
CPT/HCPCS: 80053; 80159; 80307; 81003; 85025; 87081; 99291; G0480

== ENCOUNTER 2022-06-08 01:41 | Emergency (ER) | payer OTHER ==
[~2022-06-08] VITALS: Ht 160 cm; Wt 58.0 kg
[~2022-06-08 01:41] MED LIST changes: +MIRT30 PO; +PROP10TA72 PO
[2022-06-08] MEDS ORDERED: ACETAMINOPHEN 500 MG TABLET PO ONE (02:30)
[2022-06-08] MEDS ORDERED: LIDOCAINE 5% TRANSDERMAL PATCH TD ONE (02:30)
[2022-06-08 02:46] LABS: BASOPHILS % (AUTO) 0.5 % (0.0-2.0); EOSINOPHILS % (AUTO) 1.4 % (1.0-6.0); HEMOGLOBIN 12.6 g/dL (12.0-16.0); LYMPHOCYTES % (AUTO) 18.7 % (22.0-44.0); MEAN CORPUSCULAR HEMOGLOBIN 31.6 pg (26.0-34.0); MEAN CORPUSCULAR HGB CONC 33.3 G/dL (31.0-37.0); MEAN CORPUSCULAR VOLUME 95 fL (80-100); MONOCYTES # (AUTO) 0.6 K/uL (0.1-1.0); MONOCYTES % (AUTO) 5.9 % (2.0-9.0); NEUTROPHILS # (AUTO) 7.9 K/uL (1.8-7.7); NEUTROPHILS % (AUTO) 73.5 % (40.0-70.0); PLATELET COUNT (AUTO) 286 K/uL (150-450); RED CELL DISTRIBUTION WIDTH 12.6 % (11.5-14.5)
[2022-06-08 02:57] LABS: ANION GAP 2 mmol/L (8-16); CALCIUM, TOTAL 9.3 mg/dL (8.8-10.5); CARBON DIOXIDE 33 mmol/L (22-29); CHLORIDE 106 mmol/L (98-107); CREATININE 0.86 mg/dL (0.60-1.30); GLUCOSE,RANDOM 113 mg/dL (70-110); POTASSIUM 4.3 mmol/L (3.5-5.1); SODIUM SERUM 141 mmol/L (136-145); UREA NITROGEN, BLOOD 22 mg/dL (7-18)
[2022-06-08 02:58] LABS: GLOMERULAR FILTR. RATE CALC > 60 mL/min (>60)
[2022-06-08 03:15] LABS: ALANINE AMINOTRANSFERASE 48 U/L (12-78); ALBUMIN 3.4 g/dL (3.4-5.0); ALKALINE PHOSPHATASE 94 U/L (46-116); ASPARTATE AMINOTRANSFERASE 27 U/L (15-37); BILIRUBIN,TOTAL 0.2 mg/dL (0.1-1.0); CREATINE KINASE, TOTAL ONLY 92 U/L (26-192); HCG,QUANTITATIVE 3 mIU/mL (0-6); TOTAL PROTEIN, SERUM 7.1 g/dL (6.4-8.2)
[2022-06-08 03:24] LABS: B-TYPE NATRIURETIC PEPTIDE 15 pg/mL (0-100)
[2022-06-08 05:49] VITALS: BP 125/56
== END 2022-06-08 06:42 | disposition home or self-care (01) ==
LOC: EMS 01:41
DX: S20.212A Contusion of left front wall of thorax, initial encounter (principal); R07.81 Pleurodynia; I10 Essential (primary) hypertension; F20.9 Schizophrenia, unspecified; W19.XXXA Unspecified fall, initial encounter; Y93.89 Activity, other specified; Y92.89 Other specified places as the place of occurrence of the external cause; Y99.8 Other external cause status
CPT/HCPCS: 70450; 71250; 72125; 72131; 80053; 82550; 83880; 84484; 84702; 85025; 93005; 99285

== ENCOUNTER → 2022-07-13 | Outpatient (CLI) | payer OTHER ==
[~2022-07-13] MED LIST changes: +CLOZ100T11 PO; -DULO-114 PO; -GABA-1216 PO; -LURA40TA2 PO; -MIRT30 PO; -OMEG-135 PO; +PREG50 PO; -PROP10TA72 PO
[2022-07-21 15:19] LABS: BASOPHILS % (AUTO) 0.4 % (0.0-2.0); EOSINOPHILS % (AUTO) 0.5 % (1.0-6.0); HEMATOCRIT 37.1 % (36-46); HEMOGLOBIN 12.1 g/dL (12.0-16.0); LYMPHOCYTES # (AUTO) 1.8 K/uL (1.0-4.8); LYMPHOCYTES % (AUTO) 22.1 % (22.0-44.0); MEAN CORPUSCULAR HEMOGLOBIN 31.2 pg (26.0-34.0); MEAN CORPUSCULAR HGB CONC 32.6 G/dL (31.0-37.0); MEAN CORPUSCULAR VOLUME 96 fL (80-100); MONOCYTES # (AUTO) 0.5 K/uL (0.1-1.0); MONOCYTES % (AUTO) 6.1 % (2.0-9.0); NEUTROPHILS # (AUTO) 5.8 K/uL (1.8-7.7); NEUTROPHILS % (AUTO) 70.9 % (40.0-70.0); PLATELET COUNT (AUTO) 263 K/uL (150-450); RED BLOOD CELL COUNT(AUTO) 3.88 MIL/uL (4.00-5.20); RED CELL DISTRIBUTION WIDTH 13.3 % (11.5-14.5)
== END | disposition home or self-care (01) ==
LOC: LABMN 12:00
PROVIDERS: ATTEND Psychiatry & Neurology Psychiatry
DX: F25.1 Schizoaffective disorder, depressive type (principal)
CPT/HCPCS: 85025

== ENCOUNTER → 2022-07-21 | Outpatient (CLI) | payer OTHER ==
[2022-07-21 15:19] LABS: BASOPHILS % (AUTO) 0.4 % (0.0-2.0); EOSINOPHILS % (AUTO) 0.5 % (1.0-6.0); HEMATOCRIT 37.1 % (36-46); HEMOGLOBIN 12.1 g/dL (12.0-16.0); LYMPHOCYTES # (AUTO) 1.8 K/uL (1.0-4.8); LYMPHOCYTES % (AUTO) 22.1 % (22.0-44.0); MEAN CORPUSCULAR HEMOGLOBIN 31.2 pg (26.0-34.0); MEAN CORPUSCULAR HGB CONC 32.6 G/dL (31.0-37.0); MEAN CORPUSCULAR VOLUME 96 fL (80-100); MONOCYTES # (AUTO) 0.5 K/uL (0.1-1.0); MONOCYTES % (AUTO) 6.1 % (2.0-9.0); NEUTROPHILS # (AUTO) 5.8 K/uL (1.8-7.7); NEUTROPHILS % (AUTO) 70.9 % (40.0-70.0); PLATELET COUNT (AUTO) 263 K/uL (150-450); RED BLOOD CELL COUNT(AUTO) 3.88 MIL/uL (4.00-5.20); RED CELL DISTRIBUTION WIDTH 13.3 % (11.5-14.5)
== END | disposition home or self-care (01) ==
LOC: LABMN 08:21
PROVIDERS: ATTEND Psychiatry & Neurology Psychiatry
DX: F25.1 Schizoaffective disorder, depressive type (principal)
CPT/HCPCS: 80159; 85025

== ENCOUNTER → 2022-07-27 | Outpatient (CLI) | payer OTHER ==
[2022-07-27 14:47] LABS: BASOPHILS % (AUTO) 0.4 % (0.0-2.0); EOSINOPHILS % (AUTO) 0.8 % (1.0-6.0); HEMATOCRIT 38.8 % (36-46); HEMOGLOBIN 12.6 g/dL (12.0-16.0); LYMPHOCYTES # (AUTO) 1.3 K/uL (1.0-4.8); LYMPHOCYTES % (AUTO) 16.6 % (22.0-44.0); MEAN CORPUSCULAR HGB CONC 32.4 G/dL (31.0-37.0); MEAN CORPUSCULAR VOLUME 96 fL (80-100); MONOCYTES # (AUTO) 0.4 K/uL (0.1-1.0); MONOCYTES % (AUTO) 5.4 % (2.0-9.0); NEUTROPHILS # (AUTO) 6.2 K/uL (1.8-7.7); NEUTROPHILS % (AUTO) 76.8 % (40.0-70.0); PLATELET COUNT (AUTO) 289 K/uL (150-450); RED BLOOD CELL COUNT(AUTO) 4.05 MIL/uL (4.00-5.20); RED CELL DISTRIBUTION WIDTH 13.5 % (11.5-14.5)
== END | disposition home or self-care (01) ==
LOC: LABMN 13:00
PROVIDERS: ATTEND Psychiatry & Neurology Psychiatry
DX: F25.1 Schizoaffective disorder, depressive type (principal)
CPT/HCPCS: 80159; 85025

== ENCOUNTER → 2022-08-03 | Outpatient (CLI) | payer OTHER ==
[2022-08-03 14:57] LABS: BASOPHILS % (AUTO) 0.7 % (0.0-2.0); EOSINOPHILS % (AUTO) 1.1 % (1.0-6.0); HEMATOCRIT 37.5 % (36-46); HEMOGLOBIN 12.2 g/dL (12.0-16.0); LYMPHOCYTES # (AUTO) 1.8 K/uL (1.0-4.8); LYMPHOCYTES % (AUTO) 20.1 % (22.0-44.0); MEAN CORPUSCULAR HEMOGLOBIN 30.9 pg (26.0-34.0); MEAN CORPUSCULAR HGB CONC 32.6 G/dL (31.0-37.0); MEAN CORPUSCULAR VOLUME 95 fL (80-100); MONOCYTES # (AUTO) 0.7 K/uL (0.1-1.0); MONOCYTES % (AUTO) 7.5 % (2.0-9.0); NEUTROPHILS # (AUTO) 6.4 K/uL (1.8-7.7); NEUTROPHILS % (AUTO) 70.6 % (40.0-70.0); PLATELET COUNT (AUTO) 323 K/uL (150-450); RED BLOOD CELL COUNT(AUTO) 3.95 MIL/uL (4.00-5.20); RED CELL DISTRIBUTION WIDTH 13.4 % (11.5-14.5)
== END | disposition home or self-care (01) ==
LOC: LABMN 14:03
PROVIDERS: ATTEND Psychiatry & Neurology Psychiatry
DX: F25.1 Schizoaffective disorder, depressive type (principal)
CPT/HCPCS: 85025

== ENCOUNTER → 2022-08-17 | Outpatient (CLI) | payer OTHER ==
[2022-08-17 20:03] LABS: BASOPHILS % (AUTO) 0.9 % (0.0-2.0); EOSINOPHILS % (AUTO) 0.7 % (1.0-6.0); HEMATOCRIT 38.1 % (36-46); HEMOGLOBIN 12.5 g/dL (12.0-16.0); LYMPHOCYTES # (AUTO) 1.5 K/uL (1.0-4.8); LYMPHOCYTES % (AUTO) 20.3 % (22.0-44.0); MEAN CORPUSCULAR HEMOGLOBIN 31.2 pg (26.0-34.0); MEAN CORPUSCULAR HGB CONC 32.8 G/dL (31.0-37.0); MEAN CORPUSCULAR VOLUME 95 fL (80-100); MONOCYTES # (AUTO) 0.4 K/uL (0.1-1.0); MONOCYTES % (AUTO) 5.9 % (2.0-9.0); NEUTROPHILS # (AUTO) 5.4 K/uL (1.8-7.7); NEUTROPHILS % (AUTO) 72.2 % (40.0-70.0); PLATELET COUNT (AUTO) 257 K/uL (150-450); RED CELL DISTRIBUTION WIDTH 13.3 % (11.5-14.5)
== END | disposition home or self-care (01) ==
LOC: LABMN 06:25
PROVIDERS: ATTEND Psychiatry & Neurology Psychiatry
DX: F25.1 Schizoaffective disorder, depressive type (principal)
CPT/HCPCS: 85025

== ENCOUNTER 2022-08-26 13:33 | Inpatient (IN) | payer OTHER ==
[~2022-08-26] VITALS: Ht 157.5 cm; Wt 59.6 kg
[2022-08-26 14:42] LABS: BASOPHILS % (AUTO) 0.5 % (0.0-2.0); EOSINOPHILS % (AUTO) 0.7 % (1.0-6.0); HEMATOCRIT 33.2 % (36-46); HEMOGLOBIN 11.1 g/dL (12.0-16.0); LYMPHOCYTES # (AUTO) 1.1 K/uL (1.0-4.8); LYMPHOCYTES % (AUTO) 18.5 % (22.0-44.0); MEAN CORPUSCULAR HEMOGLOBIN 31.3 pg (26.0-34.0); MEAN CORPUSCULAR HGB CONC 33.3 G/dL (31.0-37.0); MEAN CORPUSCULAR VOLUME 94 fL (80-100); MONOCYTES # (AUTO) 0.4 K/uL (0.1-1.0); MONOCYTES % (AUTO) 6.5 % (2.0-9.0); NEUTROPHILS # (AUTO) 4.5 K/uL (1.8-7.7); NEUTROPHILS % (AUTO) 73.8 % (40.0-70.0); PLATELET COUNT (AUTO) 218 K/uL (150-450); RED BLOOD CELL COUNT(AUTO) 3.53 MIL/uL (4.00-5.20); RED CELL DISTRIBUTION WIDTH 12.9 % (11.5-14.5)
[2022-08-26 14:52] LABS: ANION GAP 8 mmol/L (8-16); CALCIUM, TOTAL 8.5 mg/dL (8.8-10.5); CARBON DIOXIDE 26 mmol/L (22-29); CHLORIDE 107 mmol/L (98-107); CREATININE 0.61 mg/dL (0.60-1.30); GLUCOSE,RANDOM 99 mg/dL (70-110); POTASSIUM 3.9 mmol/L (3.5-5.1); SODIUM SERUM 141 mmol/L (136-145); UREA NITROGEN, BLOOD 14 mg/dL (7-18)
[2022-08-26 14:53] LABS: GLOMERULAR FILTR. RATE CALC > 60 mL/min (>60)
[2022-08-26 14:58] LABS: ALANINE AMINOTRANSFERASE 35 U/L (12-78); ALBUMIN 3.1 g/dL (3.4-5.0); ALKALINE PHOSPHATASE 87 U/L (46-116); ASPARTATE AMINOTRANSFERASE 20 U/L (15-37); BILIRUBIN,TOTAL 0.3 mg/dL (0.1-1.0); TOTAL PROTEIN, SERUM 6.4 g/dL (6.4-8.2)
[2022-08-26] MEDS ORDERED: GuaiFENesin/D-METHORPHAN [SUGAR-FREE] 200-20MG/10 ML SYRUP UDCUP PO PRN (16:45)
[2022-08-26] MEDS ORDERED: PROMETHAZINE HCL 25 MG TABLET PO PRN (16:45)
[2022-08-26] MEDS ORDERED: ACETAMINOPHEN 325 MG TABLET PO PRN (16:45)
[2022-08-26] MEDS ORDERED: HydrOXYzine PAMOATE 50 MG CAPSULE PO PRN (16:45)
[2022-08-26] MEDS ORDERED: MAG HYDROX/AL HYDROX/SIMETH ES 30 ML SUSPENSION UDCUP PO PRN (16:45)
[2022-08-26] MEDS ORDERED: LORazepam 2 MG TABLET PO PRN (16:45)
[2022-08-26] MEDS ORDERED: LOPERAMIDE HCL 2 MG CAPSULE PO PRN (16:45)
[2022-08-26] MEDS ORDERED: OLANZapine 5 MG RAPDIS TABLET PO PRN (16:45)
[2022-08-26] MEDS ORDERED: ZOLPIDEM TARTRATE 10 MG TABLET PO PRN (16:45)
[2022-08-26 17:47] LABS: COVID AG,FIA SOURCE NASAL SWAB
[2022-08-26] MEDS: THIAMINE 100 MG TABLET PO SCH (18:56)
[2022-08-26] MEDS: ClonazePAM 0.5 MG TABLET PO SCH (21:00)
[2022-08-26] MEDS ORDERED: OLANZapine 5 MG RAPDIS TABLET PO SCH (21:00)
[2022-08-26] MEDS: MELATONIN 5 MG TABLET PO SCH (21:06)
[2022-08-26 22:00] VITALS: BP 131/68
[2022-08-27] MEDS ORDERED: INFLUENZA VIRUS VACCINE QVS 2022-23 (6MO+)/PF 60 MCG/0.5 ML SYRINGE IM. ONE (01:30)
[2022-08-27 08:20] VITALS: BP 109/73
[2022-08-27] MEDS: FLUoxetine HCL 20 MG CAPSULE PO SCH (08:35)
[2022-08-27] MEDS: MULTIVITAMINS WITH MINERALS, THERAPEUTIC TABLET PO SCH (08:35)
[2022-08-27] MEDS: FOLIC ACID 1 MG TABLET PO SCH (08:36)
[2022-08-27] MEDS: ClonazePAM 0.5 MG TABLET PO SCH ×4 (08:36→20:09)
[2022-08-27] MEDS: OMEGA-3/DHA/EPA/FISH OIL 1,000 MG CAPSULE PO SCH (08:36)
[2022-08-27] MEDS: THIAMINE 100 MG TABLET PO SCH ×2 (08:37→16:16)
[2022-08-27] MEDS: MELATONIN 5 MG TABLET PO SCH (20:09)
[2022-08-27] MEDS: OLANZapine 10 MG RAPDIS TABLET PO SCH (20:09)
[2022-08-27 20:18] VITALS: BP 111/74
[2022-08-27] MEDS ORDERED: MIRTAZAPINE 15 MG TABLET PO ONE (20:45)
[2022-08-27] MEDS: MIRTAZAPINE 15 MG TABLET PO SCH (21:00)
[2022-08-28] MEDS: THIAMINE 100 MG TABLET PO SCH ×2 (09:52→16:19)
[2022-08-28] MEDS: OMEGA-3/DHA/EPA/FISH OIL 1,000 MG CAPSULE PO SCH (09:52)
[2022-08-28] MEDS: FOLIC ACID 1 MG TABLET PO SCH (09:52)
[2022-08-28] MEDS: MULTIVITAMINS WITH MINERALS, THERAPEUTIC TABLET PO SCH (09:52)
[2022-08-28] MEDS: ClonazePAM 0.5 MG TABLET PO SCH ×4 (09:52→20:54)
[2022-08-28] MEDS: FLUoxetine HCL 20 MG CAPSULE PO SCH (09:52)
[2022-08-28 20:30] VITALS: BP 108/69
[2022-08-28] MEDS: MIRTAZAPINE 15 MG TABLET PO SCH (20:54)
[2022-08-28] MEDS: MELATONIN 5 MG TABLET PO SCH (20:54)
[2022-08-28] MEDS: OLANZapine 10 MG RAPDIS TABLET PO SCH (20:55)
[2022-08-29 07:48] LABS: CHOL/HDL RATIO 2.6 (3.9-5.7)
[2022-08-29 07:58] LABS: FREE T4 (FREE THYROXINE) 1.12 ng/dL (0.76-1.46); THYROID STIMULATING HORMONE 2.05 uIU/mL (0.36-3.74)
[2022-08-29] MEDS: THIAMINE 100 MG TABLET PO SCH ×2 (08:16→16:20)
[2022-08-29] MEDS: MULTIVITAMINS WITH MINERALS, THERAPEUTIC TABLET PO SCH (08:16)
[2022-08-29] MEDS: FLUoxetine HCL 20 MG CAPSULE PO SCH (08:16)
[2022-08-29] MEDS: OMEGA-3/DHA/EPA/FISH OIL 1,000 MG CAPSULE PO SCH (08:16)
[2022-08-29] MEDS: ClonazePAM 0.5 MG TABLET PO SCH ×4 (08:16→20:20)
[2022-08-29 08:17] VITALS: BP 120/79
[2022-08-29] MEDS: FOLIC ACID 1 MG TABLET PO SCH (08:17)
[2022-08-29] MEDS ORDERED: TraZODone HCL 100 MG TABLET PO PRN (18:45)
[2022-08-29 20:10] VITALS: BP 119/74
[2022-08-29] MEDS: MELATONIN 5 MG TABLET PO SCH (20:20)
[2022-08-29] MEDS: MIRTAZAPINE 15 MG TABLET PO SCH (20:20)
[2022-08-29] MEDS: OLANZapine 10 MG RAPDIS TABLET PO SCH (20:20)
[2022-08-29] MEDS ORDERED: TraZODone HCL 100 MG TABLET PO SCH (21:00)
[2022-08-30] MEDS: MULTIVITAMINS WITH MINERALS, THERAPEUTIC TABLET PO SCH (08:17)
[2022-08-30] MEDS: FLUoxetine HCL 20 MG CAPSULE PO SCH (08:17)
[2022-08-30] MEDS: THIAMINE 100 MG TABLET PO SCH ×2 (08:17→16:14)
[2022-08-30] MEDS: FOLIC ACID 1 MG TABLET PO SCH (08:17)
[2022-08-30] MEDS: OMEGA-3/DHA/EPA/FISH OIL 1,000 MG CAPSULE PO SCH (08:17)
[2022-08-30] MEDS: ClonazePAM 0.5 MG TABLET PO SCH ×4 (08:17→20:24)
[2022-08-30 08:24] VITALS: BP 100/61
[2022-08-30] MEDS: OLANZapine 10 MG RAPDIS TABLET PO SCH (20:23)
[2022-08-30] MEDS: MELATONIN 5 MG TABLET PO SCH (20:25)
[2022-08-30 20:50] VITALS: BP 110/70
[2022-08-30] MEDS ORDERED: TraZODone HCL 100 MG TABLET PO SCH (21:00)
[2022-08-30] MEDS ORDERED: ESZOPICLONE 3 MG TABLET PO SCH (21:00)
[2022-08-31 08:29] VITALS: BP 102/61
[2022-08-31] MEDS: OMEGA-3/DHA/EPA/FISH OIL 1,000 MG CAPSULE PO SCH (08:41)
[2022-08-31] MEDS: MULTIVITAMINS WITH MINERALS, THERAPEUTIC TABLET PO SCH (08:41)
[2022-08-31] MEDS: THIAMINE 100 MG TABLET PO SCH ×2 (08:41→17:03)
[2022-08-31] MEDS: FLUoxetine HCL 20 MG CAPSULE PO SCH (08:42)
[2022-08-31] MEDS: ClonazePAM 0.5 MG TABLET PO SCH ×3 (08:42→17:03)
[2022-08-31] MEDS: FOLIC ACID 1 MG TABLET PO SCH (08:42)
[2022-08-31] MEDS: MAGNESIUM HYDROXIDE SUSPENSION 30 ML UDCUP PO PRN (18:10)
[2022-08-31] MEDS ORDERED: ESZOPICLONE 3 MG TABLET PO PRN (19:15)
[2022-08-31 20:03] VITALS: BP 100/63
[2022-08-31] MEDS: TraZODone HCL 100 MG TABLET PO SCH (20:13)
[2022-08-31] MEDS: MELATONIN 5 MG TABLET PO SCH (20:13)
[2022-08-31] MEDS: OLANZapine 10 MG RAPDIS TABLET PO SCH (20:14)
[2022-08-31] MEDS ORDERED: LORazepam 2 MG TABLET PO PRN (20:45)
[2022-09-01] MEDS ORDERED: MODAFINIL 100 MG TABLET PO SCH (06:00)
[2022-09-01] MEDS: MULTIVITAMINS WITH MINERALS, THERAPEUTIC TABLET PO SCH (08:16)
[2022-09-01] MEDS: THIAMINE 100 MG TABLET PO SCH ×2 (08:16→16:49)
[2022-09-01] MEDS: FOLIC ACID 1 MG TABLET PO SCH (08:16)
[2022-09-01] MEDS: OMEGA-3/DHA/EPA/FISH OIL 1,000 MG CAPSULE PO SCH (08:16)
[2022-09-01] MEDS: FLUoxetine HCL 20 MG CAPSULE PO SCH (08:17)
[2022-09-01] MEDS: ClonazePAM 0.5 MG TABLET PO SCH ×3 (08:17→16:49)
[2022-09-01 08:24] VITALS: BP 118/73
[2022-09-01] MEDS: MAGNESIUM HYDROXIDE SUSPENSION 30 ML UDCUP PO PRN (17:56)
[2022-09-01 20:00] VITALS: BP 109/65
[2022-09-01] MEDS: OLANZapine 10 MG RAPDIS TABLET PO SCH (20:08)
[2022-09-01] MEDS: TraZODone HCL 100 MG TABLET PO SCH (20:08)
[2022-09-01] MEDS: MELATONIN 5 MG TABLET PO SCH (20:08)
[2022-09-02] MEDS ORDERED: MODAFINIL 100 MG TABLET PO SCH (06:00)
[2022-09-02 08:13] VITALS: BP 119/78
[2022-09-02] MEDS: MULTIVITAMINS WITH MINERALS, THERAPEUTIC TABLET PO SCH (09:00)
[2022-09-02] MEDS: THIAMINE 100 MG TABLET PO SCH ×2 (09:00→18:19)
[2022-09-02] MEDS ORDERED: ClonazePAM 0.5 MG TABLET PO SCH (09:00)
[2022-09-02] MEDS: OMEGA-3/DHA/EPA/FISH OIL 1,000 MG CAPSULE PO SCH (09:00)
[2022-09-02] MEDS: FOLIC ACID 1 MG TABLET PO SCH (09:00)
[2022-09-02] MEDS: ClonazePAM 0.5 MG TABLET PO SCH ×3 (09:00→16:39)
[2022-09-02] MEDS: FLUoxetine HCL 20 MG CAPSULE PO SCH ×2 (09:00→20:22)
[2022-09-02] MEDS: MELATONIN 5 MG TABLET PO SCH (20:22)
[2022-09-02 20:55] VITALS: BP 102/59
[2022-09-02] MEDS ORDERED: OLANZapine 10 MG RAPDIS TABLET PO SCH (21:00)
[2022-09-03] MEDS ORDERED: LORazepam 1 MG TABLET PO PRN (05:00)
[2022-09-03] MEDS ORDERED: ESZOPICLONE 2 MG TABLET PO PRN (06:00)
[2022-09-03] MEDS ORDERED: MODAFINIL 100 MG TABLET PO SCH (06:00)
[2022-09-03 07:51] LABS: GLUCOMETER DEV NAME(LOC) POC.BV
[2022-09-03 08:11] VITALS: BP 100/61
[2022-09-03] MEDS: MULTIVITAMINS WITH MINERALS, THERAPEUTIC TABLET PO SCH (08:13)
[2022-09-03] MEDS: FOLIC ACID 1 MG TABLET PO SCH (08:13)
[2022-09-03] MEDS: OMEGA-3/DHA/EPA/FISH OIL 1,000 MG CAPSULE PO SCH (08:13)
[2022-09-03] MEDS: THIAMINE 100 MG TABLET PO SCH ×2 (08:14→16:11)
[2022-09-03] MEDS: ClonazePAM 0.5 MG TABLET PO SCH ×3 (08:14→16:11)
[2022-09-03 20:26] VITALS: BP 133/79
[2022-09-03] MEDS: MELATONIN 5 MG TABLET PO SCH (21:07)
[2022-09-03] MEDS: FLUoxetine HCL 20 MG CAPSULE PO SCH (21:07)
[2022-09-03] MEDS: OLANZapine 10 MG RAPDIS TABLET PO SCH (21:08)
[2022-09-04] MEDS: MODAFINIL 100 MG TABLET PO SCH (06:46)
[2022-09-04 08:13] VITALS: BP 103/60
[2022-09-04] MEDS: FOLIC ACID 1 MG TABLET PO SCH (08:13)
[2022-09-04] MEDS: ClonazePAM 0.5 MG TABLET PO SCH ×3 (08:13→16:37)
[2022-09-04] MEDS: OMEGA-3/DHA/EPA/FISH OIL 1,000 MG CAPSULE PO SCH (08:13)
[2022-09-04] MEDS: MULTIVITAMINS WITH MINERALS, THERAPEUTIC TABLET PO SCH (08:13)
[2022-09-04] MEDS: THIAMINE 100 MG TABLET PO SCH ×2 (08:13→16:37)
[2022-09-04] MEDS: OLANZapine 10 MG RAPDIS TABLET PO SCH (20:12)
[2022-09-04] MEDS: MELATONIN 5 MG TABLET PO SCH (20:12)
[2022-09-04] MEDS: FLUoxetine HCL 20 MG CAPSULE PO SCH (20:12)
[2022-09-05] MEDS: MODAFINIL 100 MG TABLET PO SCH (06:35)
[2022-09-05 08:21] VITALS: BP 106/69
[2022-09-05] MEDS: MULTIVITAMINS WITH MINERALS, THERAPEUTIC TABLET PO SCH (08:41)
[2022-09-05] MEDS: FOLIC ACID 1 MG TABLET PO SCH (08:41)
[2022-09-05] MEDS: ClonazePAM 0.5 MG TABLET PO SCH ×3 (08:41→16:24)
[2022-09-05] MEDS: OMEGA-3/DHA/EPA/FISH OIL 1,000 MG CAPSULE PO SCH (08:41)
[2022-09-05 16:13] VITALS: BP 109/61
[2022-09-05] MEDS: MELATONIN 5 MG TABLET PO SCH (20:09)
[2022-09-05] MEDS: OLANZapine 10 MG RAPDIS TABLET PO SCH (20:10)
[2022-09-05] MEDS: FLUoxetine HCL 20 MG CAPSULE PO SCH (20:10)
[2022-09-06] VITALS: BP 111/70
[2022-09-06] MEDS: MODAFINIL 100 MG TABLET PO SCH (05:59)
[2022-09-06 08:13] VITALS: BP 125/58
[2022-09-06 09:14] VITALS: BP 101/67
[2022-09-06] MEDS: ClonazePAM 0.5 MG TABLET PO SCH ×3 (09:20→16:17)
[2022-09-06] MEDS: OMEGA-3/DHA/EPA/FISH OIL 1,000 MG CAPSULE PO SCH (09:20)
[2022-09-06] MEDS: MULTIVITAMINS WITH MINERALS, THERAPEUTIC TABLET PO SCH (09:20)
[2022-09-06 11:21] LABS: GLUCOMETER DEV NAME(LOC) POC.BV
[2022-09-06] MEDS ORDERED: OMEG-135 PO (17:41)
[2022-09-06] MEDS ORDERED: FLUO20CA36 PO (17:41)
[2022-09-06] MEDS ORDERED: CLON-592 PO (17:41)
[2022-09-06] MEDS ORDERED: MODA100T65 PO (17:41)
[2022-09-06] MEDS ORDERED: OLAN10TA26 PO (17:41)
[2022-09-06] MEDS ORDERED: MELA5TAB40 PO (17:41)
[2022-09-06] MEDS ORDERED: TRAZ-257 PO (17:41)
[2022-09-06 20:26] VITALS: BP 118/64
[2022-09-06] MEDS: FLUoxetine HCL 20 MG CAPSULE PO SCH (20:30)
[2022-09-06] MEDS: MELATONIN 5 MG TABLET PO SCH (20:30)
[2022-09-06] MEDS: OLANZapine 10 MG RAPDIS TABLET PO SCH (20:31)
[2022-09-07] MEDS: MODAFINIL 100 MG TABLET PO SCH (06:22)
[2022-09-07] MEDS: OMEGA-3/DHA/EPA/FISH OIL 1,000 MG CAPSULE PO SCH (08:37)
[2022-09-07] MEDS: MULTIVITAMINS WITH MINERALS, THERAPEUTIC TABLET PO SCH (08:37)
[2022-09-07] MEDS: ClonazePAM 0.5 MG TABLET PO SCH (08:37)
[2022-09-07 08:41] VITALS: BP 118/64
== END 2022-09-07 13:28 | disposition home or self-care (01) | DRG 885 ==
LOC: EMS 13:39 → B3A 17:30 → B2S 09-04 16:01
PROVIDERS: ADMIT Psychiatry & Neurology Psychiatry; ATTEND Psychiatry & Neurology Psychiatry
DX: F33.3 Major depressive disorder, recurrent, severe with psychotic symptoms (principal); Z20.822 Contact with and (suspected) exposure to COVID-19; F41.0 Panic disorder [episodic paroxysmal anxiety]; F60.0 Paranoid personality disorder; G47.00 Insomnia, unspecified; I10 Essential (primary) hypertension; Z55.9 Problems related to education and literacy, unspecified; Z59.9 Problem related to housing and economic circumstances, unspecified; Z63.9 Problem related to primary support group, unspecified; Z65.3 Problems related to other legal circumstances; Z79.899 Other long term (current) drug therapy; Z91.199 Patient's noncompliance with other medical treatment and regimen due to unspecified reason
CPT/HCPCS: 80053; 80061; 84439; 84443; 85025; 99285; G0480; Q9967